=== PATIENT | male | born 1990 | race Caucasian/White ===

== ENCOUNTER 2023-11-20 13:11 | Emergency (ER) | payer MEDICAID ==
[~2023-11-20] VITALS: Ht 188 cm; Wt 80.8 kg
[2023-11-20 13:20] VITALS: BP 140/106; PULSE 104; RESP 16; TEMP 98.4; O2SAT 99
[2023-11-20] MEDS ORDERED: IBUP-1984 PO (15:15)
[2023-11-20] MEDS ORDERED: HYDR-3965 PO ×2 (15:15→16:51)
== END 2023-11-20 15:25 | disposition home or self-care (01) ==
LOC: ER 13:12
DX: Z79.899 Other long term (current) drug therapy (principal)
CPT/HCPCS: 73130; 99283